=== PATIENT | male | born 1975 | race Caucasian/White ===

== ENCOUNTER → 2024-07-03 08:43 | Outpatient (REF) | payer BC, SELFPAY | LOC: HWRAD 08:43 | PROVIDERS: ATTENDING PHYSICIAN Family Medicine | DX: R74.01 Elevation of levels of liver transaminase levels (principal) | CPT/HCPCS: 76700 ==

== ENCOUNTER 2025-03-15 06:29 | Day surgery (SDC) | payer BC, SELFPAY | END 2025-03-15 12:41 | disposition home or self-care (01) | LOC: GI 06:29 | PROVIDERS: ATTENDING PHYSICIAN Student in an Organized Health Care Education/Training Program | DX: Z12.11 Encounter for screening for malignant neoplasm of colon (principal); K64.4 Residual hemorrhoidal skin tags; K57.30 Diverticulosis of large intestine without perforation or abscess without bleeding; R12 Heartburn; K22.89 Other specified disease of esophagus; Z86.0101 Personal history of adenomatous and serrated colon polyps; D12.0 Benign neoplasm of cecum; K62.1 Rectal polyp; K20.90 Esophagitis, unspecified without bleeding | CPT/HCPCS: 45380; 43239; 88305 ==